=== PATIENT | female | born 1965 | race Caucasian/White ===

== ENCOUNTER 2019-07-10 15:25 | Emergency (ER) | payer BC ==
[~2019-07-10] VITALS: Ht 172.7 cm; Wt 122.5 kg
[~2019-07-10 15:25] MED LIST: MOBIC7.5 MG PO; PERCOCET 5-3251 EACH PO; PRILOSEC40 MG PO; ZOLOFT25 MG PO
[2019-07-10 16:06] LABS: ABSOLUTE BASOPHILS 0.1 thou/uL (0.0-0.2); ABSOLUTE EOSINOPHILS 0.1 thou/uL (0.0-0.7); ABSOLUTE LYMPHOCYTES 1.6 thou/uL (0.8-5.3); ABSOLUTE MONOCYTES 0.7 thou/uL (0.0-1.2); ABSOLUTE NEUTROPHILS 7.4 thou/uL (1.6-8.1); BASOPHILS 0.7 %; EOSINOPHILS 0.8 %; HEMATOCRIT 40.6 % (37.0-47.0); HEMOGLOBIN 13.9 gm/dL (12.0-15.0); LYMPHOCYTES 16.2 %; MCH 29.6 pg (26.0-34.0); MCHC 34.3 g/dL (28.0-37.0); MCV 86.2 fL (80.0-100.0); MONOCYTES 7.4 %; MPV 7.6 fl. (7.2-11.1); NUCLEATED RBCS 0 /100WBC; PLATELET COUNT* 334 thou/uL (150-400); POLYS 74.9 %; RBC 4.71 mil/uL (4.20-5.00); RDW-CV 13.1 % (10.5-14.5); WBC 9.9 thou/uL (4.0-11.0)
[2019-07-10 16:11] LABS: CALCIUM 8.9 mg/dL (8.5-10.1); CREATININE 1.1 mg/dL (0.6-1.3); POTASSIUM 3.6 mmol/L (3.5-5.1)
[2019-07-10 16:15] LABS: ALBUMIN 3.6 g/dL (3.4-5.0); TOTAL BILIRUBIN 0.4 mg/dL (<0.1-1.0); TOTAL PROTEIN 7.9 g/dL (6.4-8.2)
[2019-07-10 16:56] LABS: URINE BILIRUBIN NEGATIVE (Negative); URINE BLOOD NEGATIVE (Negative); URINE CLARITY CLEAR; URINE COLOR YELLOW; URINE GLUCOSE-RANDOM NEGATIVE (Negative); URINE KETONES NEGATIVE (Negative); URINE LEUKOCYTES-REFLEX NEGATIVE (Negative); URINE NITRITE-REFLEX NEGATIVE (Negative); URINE PROTEIN NEGATIVE (Negative); URINE UROBILINOGEN 0.2 E.U./dl (0.2-1.0)
[2019-07-10 17:42] VITALS: BP 125/85
--- NOTE | 2019-07-11 12:30 | EKG ---
[place] [address] ELECTROCARDIOGRAM REPORT Name: ISIAH BREAUX [id number] Admission: 07/10/19 Attend Phys: Discharge: 07/10/19 Date of : 67 Report #: [id number] THIS REPORT FOR: //name// [facility] ED Test Date: 2019-07-10 Test Time: 15:38:36 Pat Name: ISIAH BREAUX Department: Room: Gender: F Belt Cutter: JAROD : 1965 Requested By: Dilia Jasso Order Number: [id number] MD: Andre Carrero Measurements Intervals [place] Rate: 69 P: 34 CT: 162 QRS: 38 QRSD: 106 T: 7 QT: 409 QTc: 438 Interpretive Statements Sinus rhythm Low voltage, precordial leads No previous ECG available for comparison Electronically Signed On 07-11-2019 12:30:23 BID WRITER by Andre Carrero [email or web address] <ELECTRONICALLY SIGNED> By: Andre Carrero MD, [facility] 07/11/19 1230 1538 1538 Andre Carrero MD, FACC /EPI
== END 2019-07-10 17:45 | disposition home or self-care (01) ==
LOC: M.ERS 15:25
PROVIDERS: Personal Emergency Response Attendant
DX: K21.9 Gastro-esophageal reflux disease without esophagitis (principal); K52.9 Noninfective gastroenteritis and colitis, unspecified; R42 Dizziness and giddiness; Z79.899 Other long term (current) drug therapy; Z98.51 Tubal ligation status